=== PATIENT | male | born 1985 | race African-American/Black ===

== ENCOUNTER 2017-07-10 05:38 | Emergency (ER) | payer SELFPAY ==
[~2017-07-10] VITALS: Ht 172.7 cm; Wt 86.0 kg
[2017-07-10 05:42] VITALS: BP 137/97; PULSE 87; RESP 20; TEMP 97.9; O2SAT 99
--- NOTE | 2017-07-10 06:10 | PD ---
HPI Chief Complaint: Facial Pain or Swelling Time Seen by Provider: 06:01 Travel History International Travel<30 days: No Contact w/Intl Traveler<30days: No Traveled to known affect area: No History of Present Illness HPI Patient is a 31-year-old male presents emergency department for evaluation of left-sided facial swelling. Patient states been going on for the past few days gradually worsening. States the pain is severe, left side of his face, no radiation, not associated with any sore throat nor difficulty swallowing. PFSH Past Medical History Asthma: Yes Diminished Hearing: No Social History Alcohol Use: Yes (WEEKENDS) Tobacco Use: Yes (10 CIG ) Substance Use: Yes (MARIJUANA LAST USE LAST NIGHT ) Allergies-Medications (Allergen,Severity, Reaction): Coded Allergies: No Known Allergies (Verified , 07/10/17) Reported Meds & Prescriptions Reported Meds & Active Scripts Active Ultram (Tramadol HCl) 50 Mg Tab 50 Mg PO Q6H PRN Magic Mouthwash Adult Liq (Multi-Ingredient Mouthwash/Gargle) 120 Ml Susp 5 Ml SWISH-SPIT Q4HR PRN Each 5mL contains: Nystatin 200,000units, Diphenhydramine 4.25mg, Viscous Lidocaine 10mg, Harrisno syrup 0.8 mL Clindamycin (Clindamycin HCl) 300 Mg Cap 300 Mg PO Q6H 10 Days Review of Systems Except as stated in HPI: all other systems reviewed are Neg Physical Exam Narrative GENERAL: [Well-developed well-nourished no obvious distress. SKIN: Focused skin assessment warm/dry. HEAD: Atraumatic. Normocephalic. EYES: Pupils equal and round. No scleral icterus. No injection or drainage. ENT: No nasal bleeding or discharge. Mucous membranes pink and moist. TMs clear bilaterally, oropharynx clear moist, no obvious dental caries seen, no abscess seen intraorally or on the face. There is significant facial edema on the left side of his face. Over the maxilla. There is no periorbital swelling , airway is widely patent, NECK: Trachea midline. No JVD. Supple without any lymphadenopathy. CARDIOVASCULAR: Regular rate and rhythm. No murmur appreciated. RESPIRATORY: No accessory muscle use. Clear to auscultation. Breath sounds equal bilaterally. GASTROINTESTINAL: Abdomen soft, non-tender, nondistended. Hepatic and splenic margins not palpable. MUSCULOSKELETAL: No obvious deformities. No clubbing. No cyanosis. No edema. NEUROLOGICAL: Awake and alert. No obvious cranial nerve deficits. Motor grossly within normal limits. Normal speech. PSYCHIATRIC: Appropriate mood and affect; insight and judgment normal. Data Data Last Documented VS Vital Signs Date Time Temp Pulse Resp B/P (MAP) Pulse Ox O2 Delivery O2 Flow Rate FiO2 07/10/17 07:46 84 18 134/95 (108) 97 07/10/17 06:53 Room Air 07/10/17 05:42 97.9 Orders Orders Clindamycin Inj (Cleocin Inj) (07/10/17 06:15) Ujce-Rgtl-Lkqp Liq (Magic Mouthwash Adul (07/10/17 06:15) Basic Metabolic Panel (Bmp) (07/10/17 06:30) Complete Blood Count With Diff (07/10/17 06:30) Iv Access Insert/Monitor (07/10/17 06:30) Ecg Monitoring (07/10/17 06:30) Oximetry (07/10/17 06:30) Sodium Chloride 0.9% Flush (Ns Flush) (07/10/17 06:30) Ct Facial Bones W Iv Contrast (07/10/17 ) Iohexol 350 Inj (Omnipaque 350 Inj) (07/10/17 06:50) Ed Discharge Order (07/10/17 07:03) Labs Laboratory Tests Test 07/10/17 06:30 White Blood Count 7.9 TH/MM3 Red Blood Count 4.74 MIL/MM3 Hemoglobin 14.5 GM/DL Hematocrit 41.8 % Mean Corpuscular Volume 88.2 FL Mean Corpuscular Hemoglobin 30.6 PG Mean Corpuscular Hemoglobin Concent 34.7 % Red Cell Distribution Width 13.3 % Platelet Count 244 TH/MM3 Mean Platelet Volume 8.1 FL Neutrophils (%) (Auto) 63.0 % Lymphocytes (%) (Auto) 22.7 % Monocytes (%) (Auto) 11.2 % Eosinophils (%) (Auto) 2.3 % Basophils (%) (Auto) 0.8 % Neutrophils # (Auto) 5.0 TH/MM3 Lymphocytes # (Auto) 1.8 TH/MM3 Monocytes # (Auto) 0.9 TH/MM3 Eosinophils # (Auto) 0.2 TH/MM3 Basophils # (Auto) 0.1 TH/MM3 CBC Comment DIFF FINAL Differential Comment Blood Urea Nitrogen 6 MG/DL Creatinine 1.03 MG/DL Random Glucose 115 MG/DL Calcium Level 9.1 MG/DL Sodium Level 138 MEQ/L Potassium Level 3.5 MEQ/L Chloride Level 105 MEQ/L Carbon Dioxide Level 26.1 MEQ/L Anion Gap 7 MEQ/L Estimat Glomerular Filtration Rate 103 ML/MIN MDM Medical Decision Making Medical Screen Exam Complete: Yes Emergency Medical Condition: Yes Differential Diagnosis Dental abscess, facial cellulitis, dental caries. Narrative Course Patient roomed emergency department, CT examination ordered for facial swelling to determine if the patient had drainable abscess which there was none. He was given a dose of antibiotic in the emergency department, will discharge on antibiotics urged to quit smoking and discussed the adverse health effects, recommended follow-up with a dentist and he verbalized understanding and agreement. Stable for discharge. Diagnosis Primary Impression: Facial cellulitis Med/Other Pt SpecificInfo: Prescription(s) given Scripts Tramadol (Ultram) 50 Mg Tab 50 MG PO Q6H Y for PAIN, #15 TAB 0 Refills Prov: Alex Foster MD 07/10/17 Lhxwqubq-Rbmvwwcporvzmsf-Wymrhrljm Liq (Magic Mouthwash Adult Liq) 120 Ml Susp 5 ML SWISH-SPIT Q4HR Y for PAIN SCALE 1 TO 10, #120 ML 0 Refills Each 5mL contains: Nystatin 200,000units, Diphenhydramine 4.25mg, Viscous Lidocaine 10mg, Harrison syrup 0.8 mL Prov: Alex Foster MD 07/10/17 Clindamycin (Clindamycin) 300 Mg Cap 300 MG PO Q6H for Infection for 10 Days, #40 CAP 0 Refills Prov: Alex Foster MD 07/10/17 Disposition: 01 DISCHARGE HOME Condition: Stable Alex Foster MD Jul 10, 2017 06:10
[2017-07-10] MEDS ORDERED: CLINDAMYCIN INJ 600 MG in SODIUM CHLORIDE 0.9% INJ 100 ML IV ONE (06:15)
[2017-07-10] MEDS ORDERED: NYSTAT/DIPHENHY/LIDO MOUTHWASH (Adult) 120ML SWISH-SPIT ONE (06:15)
[2017-07-10] MEDS ORDERED: SODIUM CHLORIDE 0.9% FLUSH 10 ML FLUSH IV FLUSH PRN (06:30)
[2017-07-10] MEDS ORDERED: IOHEXOL 350 MG/ML 10 ML VIAL (for RAD DIAG) IVCONTRAST ONE (06:50)
[2017-07-10 06:53] VITALS: BP 145/105; PULSE 81; RESP 16; O2SAT 100
[2017-07-10 06:53] LABS: BASOPHIL # 0.1 TH/MM3 (0-0.2); BASOPHIL % 0.8 % (0.0-2.0); EOSINOPHIL # 0.2 TH/MM3 (0-0.4); EOSINOPHIL % 2.3 % (0.0-4.0); HEMATOCRIT 41.8 % (39.0-51.0); HEMO FLAGS DIFF FINAL; LYMPH % 22.7 % (9.0-44.0); LYMPHOCYTE # 1.8 TH/MM3 (1.0-4.8); MEAN CELL VOLUME 88.2 FL (80.0-100.0); MEAN CORPUSCULAR HEMOGLOBIN 30.6 PG (27.0-34.0); MEAN CORPUSCULAR HGB CONC 34.7 % (32.0-36.0); MONO % 11.2 % (0.0-8.0); PLATELET COUNT 244 TH/MM3 (150-450); RED BLOOD COUNT 4.74 MIL/MM3 (4.50-5.90); RED CELL DISTRIBUTION WIDTH 13.3 % (11.6-17.2); WHITE BLOOD COUNT 7.9 TH/MM3 (4.0-11.0)
--- NOTE | 2017-07-10 06:58 | RADRPT ---
EXAM DATE/TIME: 07/10/2017 06:43 [facility] COMPARISON: No previous studies available for comparison. INDICATIONS : Left facial swelling for 2 days. IV CONTRAST: 70 cc Omnipaque 350 (iohexol) IV RADIATION DOSE: 52.62 CTDIvol (mGy) MEDICAL HISTORY : None SURGICAL HISTORY : None. ENCOUNTER: Initial ACUITY: 1 day PAIN SCALE: 3/10 LOCATION: Left facial TECHNIQUE: Volumetric scanning of the facial bones was performed. Using automated exposure control and adjustme nt of the mA and/or kV according to patient size, radiation dose was kept as low as reasonably achiev able to obtain optimal diagnostic quality images. DICOM format image data is available electronicall y for review and comparison. FINDINGS: ORBITS: The orbital and infraorbital osseous structures are intact. The retroconal structures have a normal configuration. No radiopaque foreign bodies are seen. NASAL BONE: The nasal bone and maxillary spine are intact ZYGOMATIC ARCHES: Symmetric without evidence of fracture. SINUSES: The maxillary, ethmoid sinuses are intact. No air-fluid levels seen. Opacification of right frontal sinus. NASAL CAVITY: The nasal septum is intact and midline. The lacrimal ducts are intact. SOFT TISSUES: No radiopaque foreign bodies seen. No soft-tissue swelling is seen. INTRACRANIAL: No intracranial air seen. CRIBIFORM PLATE: Grossly intact. Facial soft tissue swelling on the left. No abscess. CONCLUSION: 1. Soft tissue swelling on the left without abscess. Eliel Skinner MD on July 10, 2017 at 6:53 Board Certified Radiologist. This report was verified electronically.
[2017-07-10] MEDS ORDERED: CLIN1CAP6 PO (07:06)
[2017-07-10] MEDS ORDERED: ULTR50TA5 PO (07:06)
[2017-07-10] MEDS ORDERED: MAGICADU2 SWISH-SPIT (07:06)
[2017-07-10 07:30] LABS: BICARBONATE 26.1 MEQ/L (21.0-32.0); POTASSIUM 3.5 MEQ/L (3.5-5.1)
[2017-07-10 07:46] VITALS: BP 134/95
== END 2017-07-10 07:47 | disposition home or self-care (01) ==
LOC: NEPE 05:38
DX: L03.211 Cellulitis of face (principal); F17.210 Nicotine dependence, cigarettes, uncomplicated
CPT/HCPCS: 70487; 80048; 85025; 96365; 99285; Q9967